=== PATIENT | female | born 1990 | race Caucasian/White ===

== ENCOUNTER 2016-09-13 16:47 | Emergency (ER) | payer OTHER ==
[2016-09-13 16:55] VITALS: BP 99/60; PULSE 64; TEMP 98; BMI 23.5
[2016-09-13] MEDS ORDERED: ONDANSETRON 4 MG/2 ML VIAL IVPUSH ONE (17:39)
[2016-09-13] MEDS ORDERED: SODIUM CHLORIDE 1,000 ML IV STA (17:40)
[2016-09-13] MEDS ORDERED: ONDANSETRON 4 MG/2 ML VIAL ONE (17:53)
--- NOTE | 2016-09-13 18:03 | PDOC ---
History of Present Illness - History of Present Illness Initial Comments: 09/13/16 18:52 The patient is a 26 year old female, , with no significant past medical history, who presents to the emergency department with epigastric pain and vomiting for 2 days. The patient reports 10 episodes of vomiting today. The patient states she was seen at [facility] yesterday where she had an ultrasound which was negative for cholecystitis or other acute pathology and was discharged on pepcid and maalox for gastritis. She states she can not eat or drink without vomiting. She reports starting her menstrual cycle yesterday. She denies chest pain, shortness of breath, headache and dizziness. She denies fever, chills, diarrhea and constipation. She denies dysuria, frequency, urgency and hematuria. Allergies: NKDA Social history: occasional alcohol consumption. Denies illicit drug use <Rosalee Conner - Last Filed: 09/13/16 18:51> <Shama Rosales - Last Filed: 09/13/16 21:04> - General Chief Complaint: Pain Stated Complaint: ABD PAIN, VOMITING Time Seen by Provider: 09/13/16 17:25 Past History <Rosalee Conner - Last Filed: 09/13/16 18:51> - Past Medical History Anemia: No Asthma: No Cancer: No Cardiac Disorders: No Diabetes: No HTN: No Seizures: No Thyroid Disease: No - Family Disease History Family Disease History: Heart Disease: Mother - Immunization History Td Vaccination: Yes Immunization Up to Date: Yes - Psycho/Social/Smoking Cessation Hx Anxiety: No Suicidal Ideation: No Smoking Status: No Smoking History: Never smoked Years of Tobacco Use: 0 Have you smoked in the past 12 months: No Number of Cigarettes Smoked Daily: 0 Cigars Per Day: 0 Hx Alcohol Use: No Drug/Substance Use Hx: No Substance Use Type: None Hx Substance Use Treatment: No <Shama Rosales - Last Filed: 09/13/16 21:04> - Past Medical History Allergies/Adverse Reactions: Allergies Allergy/AdvReac Type Severity Reaction Status Date / Time No Known Allergies Allergy Verified 09/13/16 16:54 Home Medications: Ambulatory Orders Ondansetron [Zofran Odt -] 4 mg SL TID PRN #21 od.tablet 09/13/16 Review of Systems - Review of Systems Able to Perform ROS?: Yes Comments:: 09/13/16 18:53 CONSTITUTIONAL: Absent: fever, chills, diaphoresis, generalized weakness, malaise, loss of appetite HEENT: Absent: rhinorrhea, nasal congestion, throat pain, throat swelling, difficulty swallowing, mouth swelling, ear pain, eye pain, visual Changes CARDIOVASCULAR: Absent: chest pain, syncope, palpitations, irregular heart rate, lightheadedness , peripheral edema RESPIRATORY: Absent: cough, shortness of breath, dyspnea with exertion, orthopnea, wheezing, stridor, hemoptysis GASTROINTESTINAL: (+) epigastric pain, nausea, vomiting. Absent: abdominal distension, diarrhea, constipation, melena, hematochezia GENITOURINARY: Absent: dysuria, frequency, urgency, hesitancy, hematuria, flank pain, genital pain MUSCULOSKELETAL: Absent: myalgia, arthralgia, joint swelling SKIN: Absent: rash, itching, pallor HEMATOLOGIC/IMMUNOLOGIC: Absent: easy bleeding, easy bruising, lymphadenopathy, frequent infections ENDOCRINE: Absent: unexplained weight gain, unexplained weight loss, heat intolerance, cold intolerance NEUROLOGIC: Absent: headache, focal weakness or paresthesias, dizziness, unsteady gait, seizure, mental status changes, bladder or bowel incontinence PSYCHIATRIC: Absent: anxiety, depression, suicidal or homicidal ideation, hallucinations. <Rosalee Conner - Last Filed: 09/13/16 18:51> *Physical Exam - Vital Signs Last Vital Signs Temp Pulse Resp BP Pulse Ox 98 F 64 18 99/60 99 09/13/16 16:51 09/13/16 16:51 09/13/16 16:51 09/13/16 16:51 09/13/16 16:51 - Physical Exam Comments: 09/13/16 18:54 GENERAL: Well developed, well nourished. Awake and alert. No acute distress. HEENT: (+) Dry mucous membranes. Normocephalic, atraumatic. PERRLA, EOMI. No conjunctival pallor. Sclera are non-icteric. Oropharynx is clear. NECK: Supple. Full ROM. No JVD. Carotid pulses 2+ and symmetric, without bruits. No thyromegaly. No lymphadenopathy. CARDIOVASCULAR: Regular rate and rhythm. No murmurs, rubs, or gallops. Distal pulses are 2+ and symmetric. PULMONARY: No evidence of respiratory distress. Lungs clear to auscultation bilaterally. No wheezing, rales or rhonchi. ABDOMINAL: (+) periumbilicus tenderness to palpation. Soft. Non-distended. No rebound or guarding. No organomegaly. Normoactive bowel sounds. MUSCULOSKELETAL Normal range of motion at all joints. No bony deformities or tenderness. No CVA tenderness. EXTREMITIES: No cyanosis. No clubbing. No edema. No calf tenderness. SKIN: Warm and dry. Normal capillary refill. No rashes. No jaundice. NEUROLOGICAL: Alert, awake, appropriate. Cranial nerves 2-12 intact. Normoreflexic in the upper and lower extremities. Normal speech. Toes are down-going bilaterally. Gait is normal without ataxia. PSYCHIATRIC: Cooperative. Good eye contact. Appropriate mood and affect. <Rosalee Conner - Last Filed: 09/13/16 18:51> - Vital Signs Last Vital Signs Temp Pulse Resp BP Pulse Ox 98 F 64 18 99/60 99 09/13/16 16:51 09/13/16 16:51 09/13/16 16:51 09/13/16 16:51 09/13/16 16:51 <Shama Rosales - Last Filed: 09/13/16 21:04> ED Treatment Course - LABORATORY CBC & Chemistry Diagram: 09/13/16 18:13 09/13/16 18:13 - ADDITIONAL ORDERS Additional order review: Laboratory Results 09/13/16 09/13/16 09/13/16 18:20 18:20 18:13 Sodium 141 Potassium 4.0 Chloride 106 Carbon Dioxide 29 Anion Gap 6 L BUN 10 D Creatinine 0.7 D Creat Clearance w eGFR > 60 Random Glucose 83 Calcium 8.6 Total Bilirubin 0.2 AST 8 L D ALT 14 D Alkaline Phosphatase 51 D Total Protein 6.6 Albumin 3.5 Urine Color Yellow Urine Appearance Slcloudy Urine pH 7.0 Ur Specific [employer] 1.023 Urine Protein Negative Urine Glucose (UA) Negative Urine Ketones Negative Urine Blood 3+ H Urine Nitrite Negative Urine Bilirubin Negative Urine Urobilinogen Negative Ur Leukocyte Esterase Trace H Urine HCG, Qual Negative 09/13/16 18:13 RBC 4.34 MCV 86.9 MCHC 33.8 RDW 12.9 MPV 9.8 Neutrophils % 54.9 Lymphocytes % 36.3 D Monocytes % 7.3 Eosinophils % 1.0 Basophils % 0.5 - Medications Given in the ED: ED Medications Discontinued Medications Generic Name Dose Route Start Last Admin Trade Name Freq PRN Reason Stop Dose Admin Sodium Chloride 1,000 mls @ 1,000 mls/hr 09/13/16 17:40 09/13/16 17:55 Normal Saline - IV 09/13/16 18:39 1,000 mls/hr ASDIR STA Administration Ondansetron HCl 4 mg 09/13/16 17:39 09/13/16 17:55 Zofran Injection IVPUSH 09/13/16 17:40 4 mg ONCE ONE Administration <Rosalee Conner - Last Filed: 09/13/16 18:51> - LABORATORY CBC & Chemistry Diagram: 09/13/16 18:13 09/13/16 18:13 - Medications Given in the ED: ED Medications Discontinued Medications Generic Name Dose Route Start Last Admin Trade Name Freq PRN Reason Stop Dose Admin Ondansetron HCl 4 mg 09/13/16 17:39 09/13/16 17:55 Zofran Injection IVPUSH 09/13/16 17:40 4 mg ONCE ONE Administration <Shama Rosales - Last Filed: 09/13/16 21:04> Medical Decision Making - Medical Decision Making 09/13/16 20:51 26 yo female was seen at another hospital yesterday [facility] for gastritis and has baum RX for PPI -she comes in tonight for persistent vomiting -her labs are wnl -her abdominal exam is benign -she had an abdominal ultrasound yesterday and they had the dictated results with them. It was a NEGATIVE ultrasound -her test was negative pt felt better after IV antiemetics and was discharged home <Shama Rosales - Last Filed: 09/13/16 21:04> *DC/Admit/Observation/Transfer - Attestations Scribe Attestion: 09/13/16 18:55 Documentation prepared by Rosalee Conner, acting as medical assistant dermatology for Shama Rosales MD <Rosalee Conner - Last Filed: 09/13/16 18:51> <Shama Rosales - Last Filed: 09/13/16 21:04> Diagnosis at time of Disposition: Vomiting Qualifiers: Vomiting type: unspecified Vomiting Intractability: unspecified Nausea presence : with nausea Qualified Code(s): R11.2 - Nausea with vomiting, unspecified - Discharge Dispostion Disposition: HOME Condition at time of disposition: Stable - Prescriptions Prescriptions: Ondansetron [Zofran Odt -] 4 mg SL TID PRN #21 od.tablet PRN Reason: Nausea And/Or Vomiting - Referrals Referrals: Melody Gonzáles MD [Primary Care Provider] - - Patient Instructions Printed Discharge Instructions: DI for Gastritis Additional Instructions: If you have persistent symptoms,please follow up with a degreasing solution reclaimer
[2016-09-13 18:20] LABS: BASOPHIL 0.5 % (0-2.0); MCH 29.3 pg (25.7-33.7); MCHC 33.8 g/dl (32.0-36.0); MEAN CELL VOLUME 86.9 fl (80-96); MEAN PLT VOLUME 9.8 fl (7.5-11.1); NEUTROPHILS 54.9 % (42.8-82.8); PLATELET COUNT 204 K/MM3 (134-434); RDW 12.9 % (11.6-15.6); WHITE BLOOD COUNT 5.3 K/mm3 (4.0-10.0)
[2016-09-13 18:34] LABS: URINE APPEARANCE SLCLOUDY; URINE BILIRUBIN NEGATIVE (NEGATIVE); URINE COLOR YELLOW; URINE GLUCOSE (UA) NEGATIVE (NEGATIVE); URINE KETONE NEGATIVE (NEGATIVE); URINE NITRITE NEGATIVE (NEGATIVE); URINE PROTEIN NEGATIVE (NEGATIVE); URINE UROBILINOGEN NEGATIVE E.U./dl (0.2-1.0)
[2016-09-13 18:41] LABS: URINE BACTERIA RARE /hpf (NONE SEEN); URINE BLOOD 3+ (NEGATIVE); URINE LEUK ESTERASE TRACE (NEGATIVE); URINE MUCUS RARE; URINE RBC 5 /hpf (0-3); URINE WBC 3 /hpf (3-5)
[2016-09-13 18:43] LABS: ALBUMIN 3.5 g/dl (3.4-5.0); ALK PHOS 51 U/L (45-117); ANION GAP 6 (8-16); BILIRUBIN,TOTAL 0.2 mg/dL (0.2-1.0); CALCIUM 8.6 mg/dL (8.5-10.1); CO2 29 mmol/L (21-32); CREATININE 0.7 mg/dL (0.55-1.02); GLUCOSE,RANDOM 83 mg/dL (74-106); SGOT/AST 8 U/L (15-37); SGPT/ALT 14 U/L (12-78); TOT PROT 6.6 g/dl (6.4-8.2)
[2016-09-13] MEDS ORDERED: METOCLOPRAMIDE HCL INJECTION 10 MG/2 ML VIAL IVPB ONE (19:36)
[2016-09-13] MEDS ORDERED: METOCLOPRAMIDE HCL INJECTION 10 MG/2 ML VIAL ONE (19:54)
== END 2016-09-13 21:07 | disposition home or self-care (01) ==
LOC: JER 16:47
PROC: 3E033GC Introduction of Other Therapeutic Substance into Peripheral Vein, Percutaneous Approach (ICD-10-PCS; principal; 2016-09-13)
PROC: 3E033GC Introduction of Other Therapeutic Substance into Peripheral Vein, Percutaneous Approach (ICD-10-PCS; 2016-09-13)
DX: K29.70 Gastritis, unspecified, without bleeding (principal)
CPT/HCPCS: 36415; 80053; 81003; 81015; 84703; 85025; 96374; 96375; 99283-25

== ENCOUNTER 2017-10-28 20:23 | Emergency (ER) | payer OTHER ==
--- NOTE | 2017-10-28 20:33 | PDOC ---
Rapid Medical Evaluation Time Seen by Provider: 10/28/17 20:30 Medical Evaluation: Allergies Allergy/AdvReac Type Severity Reaction Status Date / Time No Known Allergies Allergy Verified 09/13/16 16:54 10/28/17 20:31 I have performed a brief in-person evaluation of this patient. The patient presents with a chief complaint of: , cramping to LLQ, vaginal bleeding, LMP - 09/24 Pertinent physical exam findings: mild tenderness to LLq I have ordered the following: labs,tvus The patient will proceed to the ED for further evaluation. Discharge Disposition - Diagnosis Vaginal bleeding during - Referrals - Patient Instructions - Post Discharge Activity
[2017-10-28 20:35] VITALS: BP 103/66; PULSE 60; TEMP 98; BMI 24.1
[2017-10-28 21:24] LABS: BASO % 0.6 % (0-2.0); HEMATOCRIT 38.5 % (32.4-45.2); HEMOGLOBIN 13.1 GM/dL (10.7-15.3); LYMPH % 33.1 % (8-40); MCH 29.2 pg (25.7-33.7); MCHC 33.9 g/dl (32.0-36.0); MEAN CELL VOLUME 86.2 fl (80-96); MEAN PLT VOLUME 9.9 fl (7.5-11.1); MONO % 9.7 % (3.8-10.2); NEUT % 54.6 % (42.8-82.8); PLATELET COUNT 227 K/MM3 (134-434); RBC 4.47 M/mm3 (3.60-5.2); RDW 13.9 % (11.6-15.6)
--- NOTE | 2017-10-28 21:25 | PDOC ---
History of Present Illness - General Chief Complaint: Vaginal Bleeding Stated Complaint: VAGINAL BLEEDING Time Seen by Provider: 10/28/17 20:30 History Source: Patient - History of Present Illness Initial Comments: 10/29/17 00:10 27 year old female with + home c/o left pelvic pain and vaginal spotting. denies fever/ chills, NVD, abdominal pain. LMP Past History - Past Medical History Allergies/Adverse Reactions: Allergies Allergy/AdvReac Type Severity Reaction Status Date / Time No Known Allergies Allergy Verified 09/13/16 16:54 Home Medications: Ambulatory Orders Ondansetron [Zofran Odt -] 4 mg SL TID PRN #21 od.tablet 09/13/16 Anemia: No Asthma: No Cancer: No Cardiac Disorders: No COPD: No Diabetes: No HTN: No Seizures: No Thyroid Disease: No - Family Disease History Family Disease History: Heart Disease: Mother - Immunization History Td Vaccination: Yes Immunization Up to Date: Yes - Suicide/Smoking/Psychosocial Hx Smoking Status: No Smoking History: Never smoked Years of Tobacco Use: 0 Have you smoked in the past 12 months: No Number of Cigarettes Smoked Daily: 0 Cigars Per Day: 0 Hx Alcohol Use: No Drug/Substance Use Hx: No Substance Use Type: None Hx Substance Use Treatment: No Review of Systems - Review of Systems Able to Perform ROS?: Yes Is the patient limited Persian proficient: No : Yes: Other (pelvic pain) *Physical Exam - Vital Signs Last Vital Signs Temp Pulse Resp BP Pulse Ox 98 F 60 16 103/66 100 10/28/17 20:33 10/28/17 20:33 10/28/17 20:33 10/28/17 20:33 10/28/17 20:33 - Physical Exam General Appearance: Yes: Appropriately Dressed Respiratory/Chest: positive: Lungs Clear, Normal Breath Sounds Female Pelvic Exam: positive: normal external exam, cervical os closed, other ( blood tinger vaginal discharge. ) Gastrointestinal/Abdominal: positive: Normal Bowel Sounds, Soft Extremity: positive: Normal Capillary Refill, Normal Inspection, Normal Range of Motion Integumentary: positive: Normal Color, Dry, Warm Neurologic: positive: Fully Oriented, Alert, Normal Mood/Affect ED Treatment Course - LABORATORY CBC & Chemistry Diagram: 10/28/17 21:10 10/28/17 20:58 *DC/Admit/Observation/Transfer Diagnosis at time of Disposition: Pelvic pain, Follicular cyst of left ovary - Discharge Dispostion Disposition: HOME - Referrals Referrals: Manoj Gauthier [Primary Care Provider] - - Patient Instructions Printed Discharge Instructions: Ovarian Cyst Additional Instructions: take ibuprofen every 6 hours for pain. follow up with your supervisor [employer] as soon as possible. - Post Discharge Activity Forms/Work/School Notes: Back to Work
[2017-10-28 21:53] LABS: ALBUMIN 3.9 g/dl (3.4-5.0); ALK PHOS 55 U/L (45-117); ANION GAP 5 (8-16); BLOOD UREA NITROGEN 10 mg/dL (7-18); CALCIUM 8.9 mg/dL (8.5-10.1); CHLORIDE 105 mmol/L (98-107); CO2 28 mmol/L (21-32); CREATININE 0.6 mg/dL (0.55-1.02); GLUCOSE,RANDOM 91 mg/dL (74-106); POTASSIUM 4.1 mmol/L (3.5-5.1); SGOT/AST 15 U/L (15-37); SGPT/ALT 15 U/L (12-78); SODIUM 138 mmol/L (136-145); TOT PROT 7.4 g/dl (6.4-8.2)
[2017-10-28 21:58] LABS: BILIRUBIN,TOTAL < 0.1 mg/dL (0.2-1.0)
[2017-10-28] MEDS ORDERED: ACETAMINOPHEN 1000 MG/100 ML VIAL (NON FORMULARY) IVPB ONE (23:23)
== END 2017-10-29 01:43 | disposition home or self-care (01) ==
LOC: JER 20:23
DX: N83.202 Unspecified ovarian cyst, left side (principal); R10.2 Pelvic and perineal pain
CPT/HCPCS: 36415; 76830-TC; 80053; 84702; 85025; 86850; 86900; 86901; 99283-25